=== PATIENT | male | born 1990 | race Caucasian/White ===

== ENCOUNTER 2023-11-11 18:06 | Emergency (ER) | payer OTHER, SELFPAY | END 2023-11-11 19:07 | LOC: EEVIPCON 18:06 → NAV ERS 18:06 | DX: S00.83XA Contusion of other part of head, initial encounter (principal); S20.219A Contusion of unspecified front wall of thorax, initial encounter; F17.200 Nicotine dependence, unspecified, uncomplicated; V89.2XXA Person injured in unspecified motor-vehicle accident, traffic, initial encounter | CPT/HCPCS: 70450; 71120; 72125 ==